=== PATIENT | female | born 1990 | race African-American/Black ===

== ENCOUNTER 2018-05-05 08:15 | Emergency (ER) | payer SELFPAY ==
[2018-05-05] MEDS ORDERED: Acetaminophen 500 MG TAB ONE (09:03)
== END 2018-05-05 10:26 | disposition home or self-care (01) ==
LOC: ERS 08:15
DX: B34.9 Viral infection, unspecified (principal); F41.9 Anxiety disorder, unspecified; F32.9 Major depressive disorder, single episode, unspecified; G43.909 Migraine, unspecified, not intractable, without status migrainosus
CPT/HCPCS: 87804; 99284

== ENCOUNTER 2018-05-12 15:37 | Emergency (ER) | payer SELFPAY ==
[2018-05-12] MEDS ORDERED: Ibuprofen 200 MG TAB ONE (17:02)
[2018-05-12] MEDS ORDERED: Ondansetron ODT 4 MG TAB ONE (17:02)
== END 2018-05-12 17:15 | disposition home or self-care (01) ==
LOC: ERS 15:37
DX: H66.93 Otitis media, unspecified, bilateral (principal); J02.9 Acute pharyngitis, unspecified; R11.2 Nausea with vomiting, unspecified; F41.9 Anxiety disorder, unspecified; F32.9 Major depressive disorder, single episode, unspecified; G43.909 Migraine, unspecified, not intractable, without status migrainosus
CPT/HCPCS: 87804; 99283; Q0162